=== PATIENT | female | born 1945 | race Caucasian/White ===

== ENCOUNTER → 2017-05-05 | Outpatient (CLI) | payer MEDICARE, OTHER ==
[~2017-05-05] MED LIST: ALPRAZOLAM1 MG PO; AMLODIPINE-BEN1 EAC1 PO; CALCIUM 500 +1 EAC2 PO; CLONAZEPAM0.5 MG PO; CYCLOBENZAPRINE5 MG PO; FLORASTOR250 M1 PO; KCL PO; LASIX20 MG PO; LORTAB 7.5-3251 EACH PO; MACROBID100 M1 DOB; MAG-OX 400400 M1 DOB; NAPROSYN500 MG PO; NEURONTIN PO; ONE DAILY MULTI1 TA3 PO; POTASSIUM CHLO10 MEQ DOB; SIMVASTATIN20 MG PO; TYLENOL #3 PO; VESICARE PO; ZITHROMAX1 G/PKT PO; ZYLOPRIM100 MG DOB; ZYRTEC PO; [UNRECOGNIZED DRUG - OTHER] TOP
--- NOTE | ~2017-05-05 | MR32 ---
[facility] A Service of [facility] RADIOLOGY TEXT RESULTS PATIENT: YELITZA LOZOYA LOCATION: [facility] : 47 UNIT #: [id number] AGE: [address]: Ankur Gunter PA-C SEX: F ORDER DR: [id number] [address] [address] [id number] O MR#: [id number] Acc #: [id number] NAME: YELITZA LOZOYA : 1945 SEX: F STUDY DATE/TIME: 05/05/2017 10:30 UNIT: [facility] ROOM: STUDY DESCRIPTION: MR Cervical Wo Contrast Attending Physician: Ankur Gunter P.A.-C. Referring Physician: Ankur Gunter P.A.-C. Ordering Physician: Ankur Gunter P.A.-C. Primary Care Physician: Primary Care Physician No MRI CENTER REPORT This report is preliminary unless electronic signature is present. EXAM MRI of the cervical spine without contrast HISTORY 72-year-old female complains of increasing neck pain, limited range of motion, worse over the past year. No known injury. COMPARISON C-spine series 01/19/2011. FINDINGS Multiplanar, multiecho imaging was performed of the cervical spine utilizing a high field magnet and dedicated protocol. Examination demonstrates loss of the normal cervical lordosis. This is most likely related to multilevel degenerative disc changes. Cervical vertebral marrow signal appears normal. Cervical cord signal appears normal without mass, syrinx or contusion. No evidence of a Chiari malformation. The atlantoaxial joint unremarkable. At C2-3, the disc space is maintained. Minimal anterolisthesis C2 on C3. No spinal or foraminal stenosis. At C3-4, there is degenerative disc changes with disc space narrowing, posterior disc protrusion and osteophyte with effacement of the thecal sac and mild central canal stenosis and predominantly left C3-4 foraminal stenosis due to uncovertebral osteophyte. At C4-5, there is degenerative disc changes with disc space narrowing. Posterior disc protrusion and osteophyte effaces the thecal sac and contacts the anterior cervical cord but no cord compression. Mild central canal stenosis and predominantly left C4-5 foraminal stenosis due to uncovertebral osteophyte. [facility] A Service of [facility] RADIOLOGY TEXT RESULTS PATIENT: YELITZA LOZOYA LOCATION: [facility] : 47 UNIT #: [id number] AGE: [address]: Ankur Gunter PA-C SEX: F ORDER DR: At C5-6, there is a broad-based posterior disc protrusion and osteophyte with impingement of the anterior cervical cord and bilateral foraminal stenosis due to a combination of disc protrusion and osteophyte. At C6-7, there is advanced degenerative disc changes with disc space narrowing, broad-based posterior disc protrusion and osteophyte with mild to moderate central canal stenosis and bilateral foraminal stenosis. At C7-T1, mild degenerative disc changes. Posterior disc protrusion with effacement of the thecal sac but no cord impingement. Left C7-T1 foraminal stenosis due to uncovertebral osteophyte. Minimal anterolisthesis of T2 on T3. Paravertebral soft tissues unremarkable. IMPRESSION Moderately advanced multilevel degenerative disc disease as described above in level by level detail as well as multilevel facet arthropathy. Multilevel spinal and foraminal stenosis with foraminal narrowing most prominent on the left at multiple levels and canal stenosis most pronounced at C4-5, C5-6 and C6-7. Dictated by... Adria Tena M.D. THIS IS AN ELECTRONICALLY VERIFIED REPORT Adria Tena M.D. at 05/06/2017 4:00 PM BARBARA/sirena TD: 05/06/2017 09:30 JOB #: [id number] MRI CENTER REPORT Page 1 of 1
--- NOTE | ~2017-05-05 | MR113 ---
[facility]. [facility] A Service of [facility] RADIOLOGY TEXT RESULTS PATIENT: YELITZA LOZOYA LOCATION: [facility] : 47 UNIT #: [id number] AGE: [address]: Ankur Gunter PA-C SEX: F ORDER DR: [id number] [place] [address] [id number] O MR#: [id number] Acc #: [id number] NAME: YELITZA LOZOYA. : 1945 SEX: F STUDY DATE/TIME: 05/05/2017 10:56 UNIT: [facility] ROOM: STUDY DESCRIPTION: MR Lumbar Wo Contrast Attending Physician: Ankur Gunter P.A.-C. Referring Physician: Ankur Gunter P.A.-C. Ordering Physician: Ankur Gunter P.A.-C. Primary Care Physician: Primary Care Physician No MRI CENTER REPORT This report is preliminary unless electronic signature is present. EXAM MRI lumbar spine without contrast HISTORY 72-year-old female with increasing low back pain with bilateral lower extremity weakness, worse over the past year. COMPARISON Lumbar spine series 01/19/2011 FINDINGS Multiplanar multiecho imaging of the lumbar spine utilizing a high field magnet dedicated protocol. Normal spinal alignment. Lumbar vertebral marrow signal unremarkable. Normal termination of the conus. There is diffuse lower thoracic and lumbar spine. Multilevel degenerative disc disease. At L1-2 there is disc space narrowing and a circumferential disc bulge and facet arthropathy contributing to mild central canal stenosis and mild to moderate bilateral foraminal stenosis. At L2-3 there is a circumferential disc bulge with disc space narrowing and mild facet hypertrophic changes contributing to moderate spinal stenosis and mild bilateral foraminal stenosis. At L3-4 there is disc space narrowing and a circumferential disc bulge which in combination with facet hypertrophic changes contributes to moderate central canal stenosis and mild to moderate bilateral foraminal stenosis. At L4-5 there is marked disc space narrowing and a circumferential disc protrusion and osteophyte contributing to mild central canal stenosis and STS. [facility] A Service of [facility] RADIOLOGY TEXT RESULTS PATIENT: YELITZA LOZOYA LOCATION: [facility] #: [id number] : 47 UNIT #: [id number] AGE: [address]: Ankur Gunter PA-C SEX: F ORDER DR: severe left L4-5 and moderate right L4-5 foraminal stenosis. There is bilateral L4-5 facet arthropathy left greater than right. At L5-S1 there is degenerative disc changes, disc base narrowing and a circumferential disc bulge, posterior osteophyte contributing to predominately bilateral foraminal stenosis, left greater than right. Mild facet arthropathy. Visualized SI joints and paravertebral soft tissues unremarkable. Apparent right renal cortical cyst. IMPRESSION Diffuse multilevel degenerative disc disease throughout the lower thoracic spine and lumbar spine with spinal stenosis most pronounced L2-3 and L3-4 due to circumferential disc bulging and facet disease and foraminal stenosis most pronounced on the left at L4-5 due to a combination of disc protrusion and osteophyte and facet disease. Please see above for level by level details. Dictated by... Adria Tena M.D. THIS IS AN ELECTRONICALLY VERIFIED REPORT Adria Tena M.D. at 05/06/2017 4:01 PM Tay TD: 05/06/2017 09:42 JOB #: [id number] MRI CENTER REPORT Page 1 of 1
== END | disposition home or self-care (01) ==
LOC: SMRI 05-04 11:00
DX: M51.36 Other intervertebral disc degeneration, lumbar region (principal); M50.30 Other cervical disc degeneration, unspecified cervical region; M50.31 Other cervical disc degeneration, high cervical region; M50.321 Other cervical disc degeneration at C4-C5 level; M50.323 Other cervical disc degeneration at C6-C7 level; M50.221 Other cervical disc displacement at C4-C5 level; M50.222 Other cervical disc displacement at C5-C6 level; M25.78 Osteophyte, vertebrae; M48.02 Spinal stenosis, cervical region; M48.06 Spinal stenosis, lumbar region; M51.26 Other intervertebral disc displacement, lumbar region; M51.37 Other intervertebral disc degeneration, lumbosacral region; M46.92 Unspecified inflammatory spondylopathy, cervical region; M47.896 Other spondylosis, lumbar region; M51.34 Other intervertebral disc degeneration, thoracic region
CPT/HCPCS: 72141; 72148